=== PATIENT | female | born 1965 | race Caucasian/White ===

== ENCOUNTER 2017-03-08 15:42 | Outpatient (CLI) | payer OTHER ==
[~2017-03-08] VITALS: Ht 152.4 cm; Wt 66.4 kg
[2017-03-08 15:53] VITALS: Ht 152.4 cm; Wt 66.4 kg
[2017-03-08] MEDS ORDERED: APIX5TAB PO (15:53)
[2017-03-08 15:54] VITALS: BP 144/73; PULSE 83; RESP 18
--- NOTE | 2017-03-08 16:04 | PN ---
Date/Time of Note Date/Time of Note DATE: 03/08/17 TIME: 15:59 Outpatient Progress Note Chief Complaint Hematuria/anemia/DVT HPI Hematuria/patient was recently in the hospital for hematuria, patient was on Coumadin, patient PT/INR was elevated, patient was started on vitamin K, and patient was started and switched to Eliquis, Anemia/no hematemesis melena, few bruises, no bleeding, DVT/patient has multiple time DVT, patient has been on Coumadin for use, recently switched to Eliquis, Review of Systems Const: No Fever, no chills, no Wt. loss, no Fatigue, normal appetite, no diaphoresis. Eyes: No pain, no discharge, no redness, no visual change, no foreign body. ENT: No pain, no bleeding, no congestion, no sore throat, no dysphagia, no discharge or rhinitis. Lymph: No adenopathy, no tender nodes, no lymphedema. Resp: No SOB, no cough, no sputum, no wheezing, no chest pain. CV: No chest pain, no palpitaions, no MAX, no PND, no edema. GI: Normal appetite, no pain, no nausea, no vomiting, no diarrhea, no blood, no constipation. : No frequency, no urgency, no dysuria, no hematuria, no flank pain, no discharge, no bleeding. Musc: no back pain, no neck pain, no knee pain, no restricted ROM. Skin: No rash, no skin lesions, no erythema, no laceration, few bruising, no pruritus. Neuro: No RECINOS, no dizziness, no syncope, no seizure, no focal-weakness. Endo: No polyuria, no polydypsia, no dry-skin, no temp-intolerance. Psych: No hallucinations, no depression, no anxiety, no suicidal ideation. Ext: No edema, no pain, no ulcer, no weakness. Physical Exam Vital Signs Date Time Temp Pulse Resp B/P Pulse Ox O2 Delivery O2 Flow Rate FiO2 03/08/17 15:54 98.8 83 18 144/73 94 Room Air General Appearance: A 51 d-year-old female who appears well-developed, well- nourished, in no acute distress. HEENT: Head normocephalic, atraumatic. Pupils equal, round, reactive to light and accommodate. Sclerae are no jaundice. Nasal turbinates pink without erythema or nasal discharge. Mucous membranes pink and moist without lesions. Oropharynx clear without any exudate or discharge. NECK: Supple. Trachea midline, No thyromegaly, No cervical lymphadenopathy, No mass, No carotid bruits, No JVD, Carotid pulses 2+ bilaterally. PULMONARY: Clear to auscultaion bilaterally, No retractions, Chest expansion symmetric bilaterally, no rales, no ronchi, no dulness on percussion. CARDIAC: Normal SI and S2, Regular rate and rythm, no murmur, gallop, or rub. GASTROINTESTINAL: Abdomen is soft, non-tender, Non Rigid, No distention, Positive bowel sounds x4 quadrants, Liver normal. SKIN: Warm, dry, no rash, few bruise especially on the left hand,, no echmosis. EXTREMITIES: Bilateral lower extremities normal, no edema, no phlabitus, pulse palpable, no contracture. MUSCULOSKELETAL: Spine Normal, Non-tender, Normal range of motion, No swelling, no deformity, no clubbing, or cyanosis, the patient has no edema to bilateral lower extremities, dorsalis pedis pulses palpable bilaterally. NEUROLOGIC: The patient is awake, alert, oriented, responding to yes/no questions appropriately, moving all extremities, cranial nerve intact, normal strenght, normal power, normal coordination, normal gait. Allergies Coded Allergies: No Known Drug Allergies (Verified Allergy, Unknown, 03/08/17) PMH Hematuria/DVT/anemia Social Hx No smoking no drinking, Family Hx Noncontributory Assessment/Plan Impression Hematuria secondary to elevated PT/INR Anemia DVT Plan Patient education done about medication, fall precaution, Monitor for bruises, a patient of multiple bruises patient to report to family physician, Patient changed to Eliquis, patient will be continued on Eliquis, Patient encouraged to follow with the primary care physician, Medications Home Meds Reported Medications Apixaban* (Eliquis*) 5 Mg Tablet, 5 MG PO BID, TAB 03/08/17 ABEL CAMPOS MD March 08, 2017 16:04
== END 2017-03-08 16:53 | disposition home or self-care (01) ==
LOC: DCC 15:42
PROVIDERS: ATTEND Internal Medicine
DX: R31.9 Hematuria, unspecified (principal); D64.9 Anemia, unspecified; I82.409 Acute embolism and thrombosis of unspecified deep veins of unspecified lower extremity

== ENCOUNTER 2017-03-22 15:09 | Outpatient (CLI) | payer OTHER ==
[~2017-03-22] VITALS: Ht 152.4 cm; Wt 65.0 kg
[~2017-03-22 15:09] MED LIST: APIX5TAB PO
[2017-03-22 15:37] VITALS: Ht 152.4 cm; Wt 65.0 kg
[2017-03-22 15:38] VITALS: BP 126/71; PULSE 103; RESP 18
--- NOTE | 2017-03-22 15:57 | PN ---
Date/Time of Note Date/Time of Note DATE: 03/22/17 TIME: 15:54 Outpatient Progress Note Chief Complaint Anemia/DVT/hematuria HPI Anemia/no hematemesis melena, no bruises, no bleeding, patient feels slightly weakness and tiredness, DVT/patient has multiple time DVT, patient on Eliquis now, patient was recently admitted with a high INR, Hematuria/no hematuria, no bruises, no back pain, Review of Systems Const: No Fever, no chills, no Wt. loss, slight fatigue, normal appetite, no diaphoresis. Eyes: No pain, no discharge, no redness, no visual change, no foreign body. ENT: No pain, no bleeding, no congestion, no sore throat, no dysphagia, no discharge or rhinitis. Lymph: No adenopathy, no tender nodes, no lymphedema. Resp: No SOB, no cough, no sputum, no wheezing, no chest pain. CV: No chest pain, no palpitaions, no MAX, no PND, no edema. GI: Normal appetite, no pain, no nausea, no vomiting, no diarrhea, no blood, no constipation. : No frequency, no urgency, no dysuria, no hematuria, no flank pain, no discharge, no bleeding. Musc: No bone/joint pain, no back pain, no neck pain, no knee pain, no restricted ROM. Skin: No rash, no skin lesions, no erythema, no laceration, no bruising, no pruritus. Neuro: No RECINOS, no dizziness, no syncope, no seizure, no focal-weakness. Endo: No polyuria, no polydypsia, no dry-skin, no temp-intolerance. Psych: No hallucinations, no depression, no anxiety, no suicidal ideation. Ext: No edema, no pain, no ulcer, no weakness. Physical Exam Vital Signs Date Time Temp Pulse Resp B/P Pulse Ox O2 Delivery O2 Flow Rate FiO2 03/22/17 15:38 98.5 103 18 126/71 94 Room Air General Appearance: A 51 year-old female who appears well-developed, well- nourished, in no acute distress. HEENT: Head normocephalic, atraumatic. Pupils equal, round, reactive to light and accommodate. Sclerae are no jaundice. Nasal turbinates pink without erythema or nasal discharge. Mucous membranes pink and moist without lesions. Oropharynx clear without any exudate or discharge. NECK: Supple. Trachea midline, No thyromegaly, No cervical lymphadenopathy, No mass, No carotid bruits, No JVD, Carotid pulses 2+ bilaterally. PULMONARY: Clear to auscultaion bilaterally, No retractions, Chest expansion symmetric bilaterally, no rales, no ronchi, no dulness on percussion. CARDIAC: Normal SI and S2, Regular rate and rythm, no murmur, gallop, or rub. GASTROINTESTINAL: Abdomen is soft, non-tender, Non Rigid, No distention, Positive bowel sounds x4 quadrants, Liver normal. SKIN: Warm, dry, no rash, no bruise, no echmosis. EXTREMITIES: Bilateral lower extremities normal, no edema, no phlabitus, pulse palpable, no contracture. MUSCULOSKELETAL: Spine Normal, Non-tender, Normal range of motion, No swelling, no deformity, no clubbing, or cyanosis, the patient has no edema to bilateral lower extremities, dorsalis pedis pulses palpable bilaterally. NEUROLOGIC: The patient is awake, alert, oriented, responding to yes/no questions appropriately, moving all extremities, cranial nerve intact, normal strenght, normal power, normal coordination, normal gait. Allergies Coded Allergies: No Known Drug Allergies (Verified Allergy, Unknown, 03/08/17) PMH No change Social Hx No change Family Hx No change Assessment/Plan Impression Anemia/DVT/hematuria resolved Plan Patient feels still slightly weakness, patient to continue multivitamins and iron pill, Patient is running out of 5 Eliquis, will refill Eliquis, Patient to follow with the primary care physician, Medications Home Meds Reported Medications Apixaban* (Eliquis*) 5 Mg Tablet, 5 MG PO BID, TAB 03/08/17 ABEL CAMPOS MD March 22, 2017 15:57
== END 2017-03-22 17:00 | disposition home or self-care (01) ==
LOC: DCC 15:09
PROVIDERS: ATTEND Internal Medicine
DX: D64.9 Anemia, unspecified (principal); I82.409 Acute embolism and thrombosis of unspecified deep veins of unspecified lower extremity; R31.9 Hematuria, unspecified